=== PATIENT | male | born 1950 | race Caucasian/White ===

== ENCOUNTER 2020-09-14 10:00 | Outpatient (RCR) | payer OTHER, SELFPAY | END 2020-09-14 11:01 | disposition other institution (70) | LOC: HO.PT 10:00 | PROVIDERS: PCP Registered Nurse Community Health; Visit Provider Registered Nurse Community Health | DX: M54.10 Radiculopathy, site unspecified (principal) | CPT/HCPCS: 97110; 97112; 97140; 97161 ==

== ENCOUNTER 2021-10-19 12:21 | Outpatient (REF) | payer OTHER, SELFPAY ==
--- NOTE | ~2021-10-19 | XR_ITS ---
EXAMINATION: XR CHEST CLINICAL INFORMATION: Bronchitis COMPARISON: 07/15/2010 TECHNIQUE: 2 views of the chest were obtained. FINDINGS: Normal symmetric lung volumes. No parenchymal consolidation. No pleural effusion. No pneumothorax. Cardiomediastinal silhouette and pulmonary vascularity are within normal limits. No acute osseous abnormalities. XR/XR chest 2V IMPRESSION: No acute findings
== END 2021-10-19 12:22 | disposition home or self-care (01) ==
LOC: HO.XRAY 12:21
PROVIDERS: Absent Provider Internal Medicine Geriatric Medicine; PCP Internal Medicine Geriatric Medicine; Visit Provider Internal Medicine
DX: J10.1 Influenza due to other identified influenza virus with other respiratory manifestations (principal); J40 Bronchitis, not specified as acute or chronic
CPT/HCPCS: 71046

== ENCOUNTER 2023-08-16 11:16 | Outpatient (REF) | payer OTHER, SELFPAY ==
[2023-08-16 13:15] LABS: MANUAL DIFF FLAG NO
[2023-08-16 13:30] LABS: Basophils Percent Auto 0.4 % (0-2); Eosinophils Percent Auto 0.5 % (0-4); Hematocrit 41.4 % (42.0-52.0); Hemoglobin 13.9 g/dl (14.0-18.0); Imm Gran Abs Auto 0.01 X10*3/uL (0.00-0.03); Imm Gran Pct Auto 0.2 % (0.0-0.4); Lymphocytes Absolute Auto 0.9 X10*3/uL (1.2-4.9); Lymphocytes Percent Auto 16.2 % (20-40); Mean Corpuscular HGB Conc 33.6 g/dl (31.0-36.0); Mean Corpuscular Hemoglobin 30.9 pg (27.0-33.0); Mean Platelet Volume 11.1 fL (9.4-12.4); Monocytes Absolute Auto 0.5 X10*3/uL (0.1-1.2); Monocytes Percent Auto 8.7 % (2-11); Neutrophils Absolute Auto 4.2 x10*3/uL (2.0-8.3); Platelet Count 289 X10*3/uL (160-400); Red Cell Distribution Width 12.6 % (11.0-16.0); White Blood Count 5.6 X10*3/uL (4.8-10.8)
[2023-08-16 14:20] LABS: Alanine Aminotransferase 22 U/L (0-40); Alkaline Phosphatase 90 U/L (39-117); Anion Gap 13 (12-20); Aspartate Amino Transferase 21 U/L (5-37); Bilirubin Total 1.7 mg/dL (0.0-1.0); Blood Urea Nitrogen 12 mg/dL (9-16); Calcium 8.8 mg/dL (8.4-10.2); Carbon Dioxide 27 mmol/L (22-29); Chloride 106 mmol/L (96-108); Cholesterol 133 mg/dL (<200); Estimated Glomerular Filt Rate > 60; Glucose Random 96 mg/dL (60-115); HDL Cholesterol 46 mg/dL (>40); LDL Cholesterol Calculated 75 mg/dL (<100); Potassium 3.7 mmol/L (3.3-5.1); Sodium 142 mmol/L (135-145); TSH reflex Free T4 1.54 uIU/mL (0.32-4.0); Total Protein 6.7 g/dL (6.5-8.0); Triglycerides 61 mg/dL (<150)
== END 2023-08-16 11:17 | disposition home or self-care (01) ==
LOC: HO.HHCL 11:16
PROVIDERS: Visit Provider Internal Medicine Geriatric Medicine
DX: I10 Essential (primary) hypertension (principal); F32.A Depression, unspecified; G47.00 Insomnia, unspecified; E03.9 Hypothyroidism, unspecified; E78.00 Pure hypercholesterolemia, unspecified; Z86.73 Personal history of transient ischemic attack (TIA), and cerebral infarction without residual deficits
CPT/HCPCS: 36415; 80053; 80061; 84443; 85025

== ENCOUNTER 2024-10-12 06:16 | Day surgery (SDC) | payer OTHER, SELFPAY ==
[2024-10-08 07:29] VITALS: BMI 21.9
[2024-10-12 06:55] VITALS: BP 133/87; PULSE 77; RESP 20; TEMP 36.6; O2SAT 96
[2024-10-12] MEDS: Tetracaine HCl/PF 0.5% Oph Sol 4 ML DROPS 1 DROP EYE-RIGHT (07:07)
[2024-10-12] MEDS: Lactated Ringers 500 ML 50 ML IV (07:07)
[2024-10-12] MEDS: Cyclopentolate 1 % Ophth Sol 2 ML DRPBTL 1 DROP EYE-RIGHT ×3 (07:08→07:10)
[2024-10-12] MEDS: Ketorolac Tromethamine 0.5% Op 5 ML DROPS 1 DROP EYE-RIGHT ×3 (07:08→07:11)
[2024-10-12] MEDS: Tropicamide 1 % Ophth Sol 3 ML BTL 1 DROP EYE-RIGHT ×3 (07:08→07:10)
[2024-10-12] MEDS: Phenylephrine HCL 2.5% Oph SoL 2 ML BOTTLE 1 DROP EYE-RIGHT ×3 (07:09→07:11)
--- NOTE | 2024-10-12 07:20 | HO.ANESPROP2 ---
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 CVA (cerebral vascular accident) Social History Social History (System 08/20/23 @ 12:40 by Lisbet Johnson) Patient Tobacco Use Status: Never used Tobacco Use of substances other than those prescribed or required for medical reasons: No Advance Directives: No Advance Directives Information Provided: Yes Advance Directives on File: No Meds Allergies Allergy/AdvReac Type Severity Reaction Status Date / Time aspirin Allergy Unknown Verified 10/08/24 07:22 Home Medications ?Medication ?Instructions ?Recorded ?Confirmed ?Last Taken ?Type allopurinol 300 mg tablet 300 mg PO DAILY 10/08/24 10/08/24 10/12/24 History atorvastatin 80 mg tablet 80 mg PO DAILY 10/08/24 10/08/24 10/12/24 History clopidogrel 75 mg tablet (Plavix) 75 mg PO DAILY 10/08/24 10/08/24 10/12/24 History levothyroxine 50 mcg tablet 50 mcg PO DAILY 10/08/24 10/08/24 10/12/24 History losartan 25 mg tablet 25 mg PO DAILY 10/08/24 10/08/24 Unknown History pantoprazole 40 mg tablet,delayed 40 mg PO DAILY 10/08/24 10/08/24 10/12/24 History release tamsulosin 0.4 mg capsule 0.4 mg PO DAILY 10/08/24 10/08/24 10/12/24 History Exam Height,Weight and Vital Signs: Height 5 ft 6 in Weight 61.689 kg Assessment and Plan Assessment Anesthesia Assessment: Chart Reviewed Documented by User: Jeana Miller DO 10/12/24 07:45 [facility] Past Medical History Medical History GERD (gastroesophageal reflux disease) On anticoagulant therapy Elevated cholesterol HTN (hypertension) 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 CVA (cerebral vascular accident) Family History Family history of problems with anesthesia: No Surgical History History of Problems with Anesthesia: No Social History Social History (System 08/20/23 @ 12:40 by Lisbet Johnson) Patient Tobacco Use Status: Never used Tobacco Use of substances other than those prescribed or required for medical reasons: No Advance Directives: No Advance Directives Information Provided: Yes Advance Directives on File: No Meds Allergies Allergy/AdvReac Type Severity Reaction Status Date / Time aspirin Allergy Unknown Verified 10/08/24 07:22 Home Medications ?Medication ?Instructions ?Recorded ?Confirmed ?Last Taken ?Type allopurinol 300 mg tablet 300 mg PO DAILY 10/08/24 10/08/24 10/12/24 History atorvastatin 80 mg tablet 80 mg PO DAILY 10/08/24 10/08/24 10/12/24 History clopidogrel 75 mg tablet (Plavix) 75 mg PO DAILY 10/08/24 10/08/24 10/12/24 History levothyroxine 50 mcg tablet 50 mcg PO DAILY 10/08/24 10/08/24 10/12/24 History losartan 25 mg tablet 25 mg PO DAILY 10/08/24 10/08/24 Unknown History pantoprazole 40 mg tablet,delayed 40 mg PO DAILY 10/08/24 10/08/24 10/12/24 History release tamsulosin 0.4 mg capsule 0.4 mg PO DAILY 10/08/24 10/08/24 10/12/24 History Exam Exam Date and Time: 10/12/24 0720 Height,Weight and Vital Signs: Height 5 ft 6 in Weight 61.689 kg Vital Signs Temperature 97.8 F 10/12/24 06:55 Pulse Rate 77 10/12/24 06:55 Respiratory Rate 20 10/12/24 06:55 Blood Pressure 133/87 10/12/24 06:55 Pulse Oximetry 96 10/12/24 06:55 Oxygen Delivery Method Room Air 10/12/24 06:55 Temperature 97.8 F 10/12/24 06:55 Pulse Rate 77 10/12/24 06:55 Respiratory Rate 20 10/12/24 06:55 Blood Pressure 133/87 10/12/24 06:55 Pulse Oximetry 96 10/12/24 06:55 Oxygen Delivery Method Room Air 10/12/24 06:55 Airway Mallampati Class: II TM Dist: >3cm Neck ROM: Limited Denture: Upper Heart: S1S2 Lungs: CTAB Assessment and Plan Assessment Anesthesia Assessment: Anesthesia Plan Discussed and Chart Reviewed Final Anesthetic Review Family History of Problems with Anesthesia: No History of Problems with Anesthesia: No NPO: Yes ASA Class: III Final Preanesthetic Review: No Changes in Pt Med Stat, Meds/Allgs Chart Reviewed, Consent Obtained/Reviewed (debubblizer at bedside for translation) and Anes Risks/Benef Reviewed Patient Risk: Intermediate Procedure Risk: Low Anesthetic Plan Anesthetic Plan: MAC: and Agree w/ Assess. and Plan Disposition: Standard PACU
--- NOTE | 2024-10-12 08:01 | MHC.SHP ---
Pre-Procedural Eval Section A - 24 Hr Update-Section A only Date of Service: 10/12/24 The patient is an INPATIENT: No Changes since office visit: No Cold of Flu in the past 2 weeks, No New Medical Problems, No Changes in Medication and No Patient answered all questions The patient has been examined within 24 hours of the surgical procedure. The History & Physical has been completed within 30 days and I have reviewed it.: Yes Section B - Complete if H&P > 30 days Chief Complaint: Age-related nuclear cataract, right eye Allergies: Allergies Allergy/AdvReac Type Severity Reaction Status Date / Time aspirin Allergy Unknown Verified 10/08/24 07:22 Plan Diagnosis/Plan: Unchanged I have reviewed the history and physical and performed a pertinent physical examination on my patient. No changes have occurred unless specified. Time Spent With Patient Time: Total time managing care of this patient today ____ minutes.
--- NOTE | 2024-10-12 08:02 | P.PCNO_ITS ---
Ophthalmology Procedure Procedure Date of Service: 10/12/24 Ophthalmology Viscoelastic: Healon Duet Dual Pack Pro Ophthalmology Lenses: IOL Acrysof MP - [id number] (21) Procedure Notes: PREOPERATIVE DIAGNOSIS: Decreased visual acuity right eye secondary to cataract POSTOPERATIVE DIAGNOSIS: Same PROCEDURE: Right cataract extraction with intraocular lens insertion SURGEON: Wong Dewey M.D. ANESTHESIA: Topical/MAC ESTIMATED BLOOD LOSS: None COMPLICATIONS: None After obtaining informed consent, the patient was brought to the operating room suite and placed in the supine position. After adequate sedation per anesthesia, topical drops of Tetracaine were given to the right eye. The eye was then prepped and draped in the usual sterile fashion. The operating room microscope was then positioned over the operative eye and a lid speculum placed. A paracentesis was created. Viscoelastic was then instilled into the anterior chamber. A three plane incision was then created temporally, utilizing a 2.85 mm keratome. Capsulotomy forceps were then utilized to create a circular tear capsulotomy. Hydrodissection and hydrodelineation were carried out until adequate mobilization of the nucleus occurred. Phacoemulsification was then utilized to remove the dense central nucl eus followed by removal of the cortical material utilizing the automated aspiration irrigation unit. Viscoelastic was instilled into the posterior capsular bag followed by placement of a posterior chamber intraocular lens without difficulty. The residual Viscoelastic was then removed utilizing the automated IA machine. The wound was checked and found to be watertight. The patient tolerated the procedure well and the lid speculum was removed. Intracameral injection of Vigamox 0.1 mL followed by a subtenon injection of Kenalog-40 0.2 mL were administered. The patient will be seen in the a.m.
[2024-10-12 08:27] VITALS: BP 132/69; PULSE 63; RESP 16; TEMP 36.4; O2SAT 98
[2024-10-12 08:42] VITALS: BP 125/67; PULSE 65; RESP 16; TEMP 36.4; O2SAT 98
== END 2024-10-12 08:46 | disposition home or self-care (01) ==
PROVIDERS: PCP Internal Medicine Geriatric Medicine; Visit Provider Ophthalmology
PROC: (CPT 66985; principal; 2024-10-12 08:00)
DX: H25.11 Age-related nuclear cataract, right eye (principal); H54.7 Unspecified visual loss; H35.033 Hypertensive retinopathy, bilateral; H43.21 Crystalline deposits in vitreous body, right eye; H11.031 Double pterygium of right eye; H18.413 Arcus senilis, bilateral; K21.9 Gastro-esophageal reflux disease without esophagitis; I69.328 Other speech and language deficits following cerebral infarction; I10 Essential (primary) hypertension; E78.00 Pure hypercholesterolemia, unspecified; Z86.73 Personal history of transient ischemic attack (TIA), and cerebral infarction without residual deficits; Z79.82 Long term (current) use of aspirin; Z79.01 Long term (current) use of anticoagulants; Z79.02 Long term (current) use of antithrombotics/antiplatelets; Z79.899 Other long term (current) drug therapy; Z88.6 Allergy status to analgesic agent; Z87.891 Personal history of nicotine dependence
CPT/HCPCS: 66984; J2250; J3301; V2630

== ENCOUNTER 2024-10-20 08:44 | Outpatient (REF) | payer OTHER, SELFPAY ==
--- OUTSIDE RECORDS SUMMARY | 2024-10-20 09:14 | XMS_ITS | Encounter Summary ---
Author Organization [employer] Address [address] [facility] [address] [place] [address] Care Team Providers Care Manager Industrial Name Role Phone Name, Darvin THOMSON Primary Care Provider [phone] Reason for Visit * Reason Onset Date Comments Pre-op Exam 08/05/2024 Encounter Details Date Type Department Care Team ([facility] st Contact Info) Description 08/05/2024 Telephone [facility] [address] [place] [address] Name, MD Darvin [address] [place] [address] Pre-op Exam Social History Tobacco Use Types Packs/Day Years Used Date Smoking Tobacco: Never Smokeless Tobacco: Never Alcohol Use Standard Drinks/Week Comments Never 0 (1 standard drink = 0.6 oz pur e alcohol) Depression Answer Date Recorded Patient Health Questionnaire-9 Score 9 08/16/2023 Patient Health Questionnaire-9 Score 9 08/16/2023 Last PHQ-9: Questionnaire Data Not on file 0 08/16/2023 Housing Stability Answer Date Recorded What is your housing situation today? I have housing today, but I am worried about losing housing in the future 08/16/[address] you li ve. Do you have problems with any of the following? None of the above 08/16/2023 Food Insecurity Answer Date Recorded Within the past 12 months, y ou worried that your food would run out before you got money to buy more: Never True 08/16/2023 Within the past 12 months,th e food you bought just didn't last and you didn't have enough money to get more: Never True 08/2023 Transportation Answer Date Recorded In the past 12 months, has l ack of transportation kept you from medical appts, meetings, work or from getting things needed for daily living? No 08/16/2023 Utilities Answer Date Recorded In the past 12 months, has t he electric, gas, oil or water company threatened to shut off services in your home? No 08/16/2023 Depression Answer Date Recorded Patient Health Questionnaire-2 Score 3 08/16/2023 Sex and Gender Information Value Date Recorded Sex Assigned at Male 05/14/2022 10:24 AM EDT Legal Sex Male 10:24 AM EDT Gender Identity Male 05/14/2022 10:24 AM EDT Sexual Orientation Choose not to disclose 2021 10:24 AM EDT documented as of this encounter Miscellaneous Notes * Telephone Encounter - Caroline Nava - 08/13/2024 1:08 PM EST Pt scheduled for pre op on 10/02/24 at 02:15PM. Appointment reminder letter mailed. * Telephone Encounter - Caroline Nava - 08/05/2024 1:25 PM EST Outgoing call to facility regarding pre op appointment request. No answer. LV. * Telephone Encounter - Doe Pan - 08/05/2024 10:11 AM EST Date of Surgery: 10/12/2024 (Right Eye) 10/26/2024 (Left Eye) Surgical procedure being done: Cataract Surgery Type of anesthesia: MAC Lab needed: No EKG: No Surgeon's name: [facility] [place] Facility name: [facility] Surgeon's office number: [phone] Surgeon's office fax number: [phone] Contact name (person you spoke with): Carolina Last office note from surgeon requested: No Send Message to Caroline Nava and Eliecer Flores documented in this encounter Plan of Treatment Not on file documented as of this encounter Visit Diagnoses Not on filedocumented in this encounter Additional Health Concerns Assessment Noted Time PHQ-9 Depression Total Score: 9 08/16/19 24 10:16 AM EST documented as of this encounter Care Teams Manager Industrial Relationship Specialty Start Date End Date Name, MD Darvin [address] [place] [address] PCP - General Family Medicine 04/01/18 documented as of this encounter
--- OUTSIDE RECORDS SUMMARY | 2024-10-20 09:14 | XMS_ITS | Encounter Summary ---
Author Organization [employer] Address [address] [facility] [address] [place] [address] Care Team Providers Care Splitter Operator Name Role Phone Name, Darvin THOMSON Primary Care Provider [phone] Encounter Details Date Type Department Care Team (Latest Contact Info) Description 10/19/2024 Travel Social History Tobacco Use Types Packs/Day Years [...] is your housing situation today? I have jessie short 10/07/[address] you li ve. Do you have problems with any of the following? None of the above 10/07/2024 Food Insecurity Answer Date Recorded Within the past 12 months, y ou worried that your food would run out before you got money to buy more: Sometimes True 2024 Within the past 12 months,th e food you bought just didn't last and you didn't have enough money to get more: Sometimes True 10/07/2024 Transportation Answer Date Recorded In the past 12 months, has l ack of transportation kept you from medical appts, meetings, work or from getting things needed for daily living? No 10/07/2024 Utilities Answer Date Recorded In the past 12 months, has t he electric, gas, oil or water company threatened to shut off services in your home? No 10/07/2024 Depression Answer Date Recorded Patient Health Questionnaire-2 Score 3 08/16/2023 Internet Access Answer Date Recorded Internet Access Q1 Yes 10/07/2024 Internet Access Q2 Not on file 10/07/2024 Sex and Gender Information Value Date Recorded Sex Assigned at Male 05/14/2022 10:24 AM EDT Legal Sex Male 10:24 AM EDT Gender Identity Male 05/14/2022 10:24 AM EDT Sexual Orientation Choose not to disclose 2021 10:24 AM EDT documented as of this encounter Plan of Treatment Not on file documented as of this encounter Visit Diagnoses Not on filedocumented in this encounter Additional Health Concerns Assessment Noted Time PHQ-9 Depression Total Score: 9 08/16/19 24 10:16 AM EST documented as of this encounter Care Teams Splitter Operator Relationship Specialty Start Date End Date Name, MD Darvin [address] [place] [address] PCP - General Family Medicine 04/01/18 documented as of this encounter
--- OUTSIDE RECORDS SUMMARY | 2024-10-20 09:14 | XMS_ITS | Clinical Summary ---
Author Organization [employer] Address [address] [place] [address] [address] [place] [address] Care Team Providers Care Box Maker Wood Name Role Phone Name, Darvin THOMSON Primary Care Provider [phone] Allergies Active Allergy Reactions Criticality Noted Date Comments Aspirin 04/24/2019 Medications losartan (Cozaar) 25 MG tablet TAKE 1 TABLET BY MOUTH EVERY DAY IN THE MORNING 90 tablet 3 12/10/19 24 Active atorvastatin (Lipitor) 80 MG tablet TAKE 1 TABLET (80 MG) BY MOUTH IN THE MORNING 90 tablet 3 12/10/19 24 025 Active pantoprazole (Protonix) 40 MG EC tablet Take 1 tablet (40 mg) by mouth before breakfast. Do not crush, chew, or split. 30 tablet 11 01/08/20 24 025 Active clopidogrel (Plavix) 75 MG tablet TAKE 1 TABLET (75 MG) BY MOUTH IN THE MORNING 90 tablet 1 08/21/19 25 Active traZODone (Desyrel) 50 MG tablet TAKE 1 TABLET BY MOUTH EVERYDAY AT BEDTIME 90 tablet 09/07/19 25 Active allopurinol (Zyloprim) 300 MG tablet TAKE 1 TABLET (300 MG) BY MOUTH IN THE MORNING 90 tablet 2 10/03/19 25 026 Active tamsulosin (Flomax) 0.4 MG 24 hr capsule TAKE 1 CAPSULE BY MOUTH EVERY DAY IN THE MORNING 90 capsule 2 10/03/19 25 Active levothyroxine (Synthroid, Levoxyl) 50 MCG tabletIndicatio ns:Hypothyroidi sm, unspecified type TAKE 1 TABLET BY MOUTH EVERY DAY BEFORE BREAKFAST 90 tablet 2 10/03/19 25 Active allopurinol (Zyloprim) 300 MG tablet TAKE 1 TABLET (300 MG) BY MOUTH IN THE MORNING 90 tablet 2 01/27/20 24 025 Discontinued tamsulosin (Flomax) 0.4 MG 24 hr capsule TAKE 1 CAPSULE BY MOUTH EVERY DAY IN THE MORNING 90 capsule 2 02/20/20 24 025 Discontinued levothyroxine (Synthroid, Levoxyl) 50 MCG tabletIndicatio ns:Hypothyroidi sm, unspecified type TAKE 1 TABLET BY MOUTH BEFORE BREAKFAST 90 tablet 2 02/25/20 24 025 Discontinued Active Problems Problem Noted Date Diagnosed Date Preop examination 10/06/2024 History of CVA (cerebrovascular accident) 2023 Missing teeth, acquired 08/13/2023 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 Right bundle branch block 07/22/2018 Hypertensive disorder 07/22/2018 H/O: attempted suicide 05/13/2018 Depressive disorder 05/13/2018 Prostatism 04/01/2018 Hypothyroidism 04/01/2018 Expressive dysphasia 04/01/2018 Hypercholesterolemia 04/01/2018 Resolved Problems Problem Noted Date Diagnosed Date Resolved Date Influenza due to influenza A virus 08/01/2022 10/19/2024 Bronchitis 08/01/2022 10/19/2024 Encounters Date Type Department Care Team Description 10/19/2024 11:15 AM EDT Office Visit [address] [address] Yovana, MD Darvin Hypertension, unspecified type (Primary Dx); History of CVA (cerebrovascular accident); Hypothyroidism, unspecified type; Depressive disorder; Grief 10/19/2024 Travel 10/07/2024 10:00 AM EDT Office Visit [address] [phone] Bev Fox FNP Preop examination (Primary Dx); History of CVA (cerebrovascular accident) 10/07/[address] [address] Mee Granda RN 10/07/2024 Travel 10/05/[address] [phone] Meron Grant [place] Chart Prep 10/02/2024 Telephone [facility] [address] [place] [address] NameDarvin MD No Show (Patient no show for pre-op ) 10/02/2024 Refill [facility] [address] [place] [address] Darvin Yen MD Hypothyroidism, unspecified type 09/10/2024 Telephone [facility] [address] [place] [phone] Darvin Yen MD Chart Prep 09/07/2024 Refill [facility] [address] [place] [phone] Allison Barrientos MD 08/27/2024 Telephone [facility] [address] [place] [phone] Darvin Yen MD call back needed 08/21/2024 Refill [facility] [address] [place] [phone] Darvin Yen MD 08/05/2024 Telephone [facility] [address] [place] [phone] Darvin Yen MD Pre-op Exam from Last 3 Months Immunizations Name Administration Dates Next Due Influenza Quadrivalent Adjuvanted 04/05/2022,12/2019 Influenza injectable quadriv alent IIV4 with preservative 04/24/2019 Influenza injectable quadriv alent preservative free 07/11/2021,07/22/2018,03/09/2018 Influenza, High Dose Seasona l, Preservative Free 04/08/2024,02/27/2017 Moderna Covid-19 Vaccine 12+ 11/30/2021 Pfizer Covid-19 Vaccine 12+ 08/16/2023 Pneumococcal Conjugate PCV 13 07/22/2018 Tdap 04/24/2019 Social History Tobacco Use Types Packs/Day Years Used Date Smoking Tobacco: Never Smokeless Tobacco: Never Tobacco Cessation:Counseling Given: Not Answered Alcohol Use Standard Drinks/Week Comments Never 0 [...] not to disclose 2021 10:24 AM EDT Last Filed Vital Signs Vital Sign Reading Time Taken Comments Blood Pressure 139/77 10/19/2024 11:30 AM EDT Pulse 89 10/19/2024 11:30 AM EDT Temperature 37.3 ??C (99.1 ??F) 10/19/2024 11:30 AM E DT Respiratory Rate 12 10/19/2024 11:30 AM EDT Oxygen Saturation 96% 10/19/2024 11:30 AM EDT Inhaled Oxygen Concentration - - Weight 61.1 kg (134 lb 9.6 oz) 10/19/2024 11:30 AM EDT Height 162.6 cm (5' 4 ) 10/19/2024 11:30 AM EDT Body Mass Index 23.1 10/19/2024 11:30 AM EDT Plan of Treatment Health Maintenance Due Date Last Done Comments Hepatitis C Screening 1966 Zoster Vaccines (1 of 2) 1998 Dental Prophylaxis 04/15/2013 10/13/2012 Pneumococcal Vaccine: 50+ Years (2 of 2 - PPSV23) 07/22/2019 07/22/2018 Dental X-Ray: Bitewings 09/10/2020 09/09/19 20, 06/20/2016, 07/16/2012 Dental Oral Exam 10/04/2021 04/05/2021, , 06/20/2016, Additional history exists RSV Patients and Patients Aged 60 years or older (1 - 1-dose 75+ series) 10/09/2023 Depression Monitoring (PHQ-9) 02/14/2024 08/16/2023, 08/16/2023 COVID-19 Vaccine ( season) 2024 08/16/2023, 11/30/2021, 05/30/2021, Additional history exists Dental X-Ray: Full Mouth 04/06/2024 021, 09/09/2019, 06/20/2016 Depression Screening 08/16/2024 08/16/2023, 08/16/19 24 Alcohol/Substance Use Screening 01/07/2025 01/08/2024 SDOH Screening 10/07/2025 10/07/2024 Tobacco Screening 10/19/2025 10/19/2024 Lipid Panel 08/16/2028 08/16/2023, 07/16, 03/29/2022, Additional history exists DTaP/Tdap/Td Vaccines (2 - Td or Tdap) 04/24/2029 04/24/2019 Influenza Vaccine Completed 04/08/2024, , 07/11/2021, Additional history exists HIB Vaccines Aged Out No longer eligi ble based on patient's age to complete this topic HPV Vaccines Aged Out No longer eligi ble based on patient's age to complete this topic Hepatitis A Vaccines Aged Out No long er eligible based on patient's age to complete this topic Hepatitis B Vaccines Aged Out No long er eligible based on patient's age to complete this topic IPV Vaccines Aged Out No longer eligi ble based on patient's age to complete this topic Meningococcal Vaccine Aged Out No mae lilli eligible based on patient's age to complete this topic RSV under 20 months Aged Out No longe r eligible based on patient's age to complete this topic Rotavirus Vaccines Aged Out No longer eligible based on patient's age to complete this topic Procedures Procedure Name Priority Date/Time Associated Diagnosis Comments LIPID PANEL, STANDARD Routine 08/16/2023 11:22 AM EST Hypertension, unspecified type Depressive disorder Insomnia, unspecified type Hypothyroidism, unspecified type Hypercholesterolemi a PANORAMIC RADIOGRAPHIC IMAGE Routine 04/05/2021 12:00 AM EDT PERIODIC ORAL EVALUATION - ESTABLISHED PATIENT Routine 04/05/2021 12:00 AM EDT INTRAORAL - COMPLETE SERIES OF RADIOGRAPHIC IMAGES Routine 09/09/2019 12:00 AM EST PROPHYLAXIS - ADULT Routine 10/13/2012 1 2:00 AM EDT from Last 3 Months or Most Recently Relevant to Health Maintenance Results * Lipid Panel, Standard (08/16/2023 11:22 AM EST) Triglycerides 61 <150 mg/dL [facility] Comment:Desirable Triglyceri de: less than 150 mg/dLBorderline High Triglyceride 150-199 mg/dLHigh Triglyceride: 200-499 mg/dLVery High Triglyceride: greater than or equal to 5OO mg/dL Cholesterol 133 <200 mg/dL [facility] Comment:Desirable Cholestero l: less than 200 mg/dLBorderline High Cholesterol: 200-239 mg/dLHigh Cholesterol: greater than 239 mg/dL LDL Cholesterol Calculated 75 <100 mg/dL [facility] Comment:Desirable LDL: less than 100 mg/dLNear Optimal/Above Optimal LDL: 110- 129 mg/dLBorderline High LDL: 130-159 mg/dLHigh LDL: 160-189 mg/dLVery High LDL: greater than or equal to 190 mg/dL HDL Cholesterol 46 >40 mg/dL [facility] Comment:Desirable HDL: great er than 40 mg/dL Note: This HDL assay may give artificially low results in patients with liver disease. Blood Venous blood specimen / Unknown 08/16/2023 11:22 AM EST 08/16/2023 1:10 PM EST us Darvin Name LAB BLOOD ORDERABLES Final Resul t [facility] [address] [place] [address] [phone] from Last 3 Months or Most Recently Relevant to Health Maintenance Insurance [facility] - [facility] Care Teams Box Maker Wood Relationship Specialty Start Date End Date Name, MD Darvin [address] [place] [phone] PCP - General Family Medicine 04/01/18
--- OUTSIDE RECORDS SUMMARY | 2024-10-20 09:14 | XMS_ITS | Encounter Summary ---
Author Organization [employer] Address [address] [facility] [address] [place] [address] Care Team Providers Care Office Nurse Practitioner Name Role Phone Name, Darvin THOMSON Primary Care Provider [phone] Reason for Visit * Reason Comments Follow-up Encounter Details Date Type Department Care Team ([facility] st Contact Info) Description 10/19/2024 11:15 AM EDT Office Visit [facility] [address] [place] [address] Name, MD Darvin [address] [place] [address] Hypertension, unspecified type (Primary Dx); History of CVA (cerebrovascular accident); Hypothyroidism, unspecified type; Depressive disorder; Grief Social History Tobacco Use Types Packs/Day Years [...] AM EDT documented as of this encounter Last Filed Vital Signs Vital Sign Reading [...] Mass Index 23.1 10/19/2024 11:30 AM EDT documented in this encounter Progress Notes * Darvin Yen MD - 10/19/2024 11:15 AM EDT Subjective Patient ID: Renato Jay is a 74 y.o. male who presents for Follow-up. Patient comes for a follow-up visit and he is depressed. The patient has a personal history of depression. He had a suicidal attempt about 3 years ago. The patient tells me that he has no energy, no appetite, anhedonia. Symptoms of depression are worse since his in August after a long history of dementia. The patient is currently on trazodone for depression and insomnia. He denies any suicidal ideation. 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 He is using his medications as prescribed. He denies any chest pains or shortness of breath. Today he also complained about his current living situation. He does not like the building where helives and would like to move. Review of Systems Constitutional: Negative for chills, fatigue and fever. HENT: Negative for sore throat. Respiratory: Negative for cough, chest tightness and shortness of breath. Cardiovascular: Negative for chest pain, palpitations and leg swelling. Gastrointestinal: Negative for abdominal pain and blood in stool. Visit Vitals BP 139/77 (BP Location: Left arm, Patient Position: Sitting, BP Cuff Size: Adult) Pulse 89 Temp 99.1 ??F (37.3 ??C) (Temporal) Resp 12 Ht 5' 4 (1.626 m) Wt 134 lb 9.6 oz (61.1 kg) SpO2 96% BMI 23.10 kg/m?? Smoking Status Never BSA 1.66 m?? Objective Physical Exam Constitutional: Appearance: Normal appearance. Cardiovascular: Rate and Rhythm: Normal rate and regular rhythm. Heart sounds: No murmur heard. Pulmonary: Effort: Pulmonary effort is normal. No respiratory distress. Breath sounds: No wheezing, rhonchi or rales. Abdominal: Palpations: Abdomen is soft. Tenderness: There is no abdominal tenderness. Musculoskeletal: Right lower leg: No edema. Left lower leg: No edema. Neurological: Mental Status: He is alert. Assessment/Plan Diagnoses and all orders for this visit: Hypertension, unspecified type Comments: Continue current BP meds, Plavix, high-dose statin for secondary prevention of stroke. Check fasting blood work listed below. Orders: - CBC auto differential; Future - Comprehensive Metabolic Panel; Future - Lipid Panel, Standard; Future - TSH W/Reflex to FT4; Future History of CVA (cerebrovascular accident) Comments: See above. No new or progressing speech deficits. No focal weakness. Orders: - CBC auto differential; Future - Comprehensive Metabolic Panel; Future - Lipid Panel, Standard; Future - TSH W/Reflex to FT4; Future Hypothyroidism, unspecified type Comments: Continue levothyroxine and recheck TSH Orders: - CBC auto differential; Future - Comprehensive Metabolic Panel; Future - Lipid Panel, Standard; Future - TSH W/Reflex to FT4; Future Depressive disorder Comments: I called behavioral health to talk with the patient today. I requested referral to a psychiatrist. Continue current dose of trazodone. Orders: - CBC auto differential; Future - Comprehensive Metabolic Panel; Future - Lipid Panel, Standard; Future - TSH W/Reflex to FT4; Future Grief Comments: See above Orders: - CBC auto differential; Future - Comprehensive Metabolic Panel; Future - Lipid Panel, Standard; Future - TSH W/Reflex to FT4; Future documented in this encounter Plan of Treatment Scheduled Orders Name Type Priority Associated Diagnoses Orde r Schedule CBC auto differential Lab Routine Hypertension, unspecified type History of CVA (cerebrovascular accident) Hypothyroidism, unspecified type Depressive disorder Grief Expected: 10/19/2024 (Approximate), Expires: 10/19/2025 Comprehensive Metabolic Panel Lab Routine Hypertension, unspecified type History of CVA (cerebrovascular accident) Hypothyroidism, unspecified type Depressive disorder Grief Expected: 10/19/2024 (Approximate), Expires: 10/19/2025 Lipid Panel, Standard Lab Routine Hypertension, unspecified type History of CVA (cerebrovascular accident) Hypothyroidism, unspecified type Depressive disorder Grief Expected: 10/19/2024 (Approximate), Expires: 10/19/2025 TSH W/Reflex to FT4 Lab Routine Hypertension, unspecified type History of CVA (cerebrovascular accident) Hypothyroidism, unspecified type Depressive disorder Grief Expected: 10/19/2024 (Approximate), Expires: 10/19/2025 documented as of this encounter Visit Diagnoses Diagnosis Hypertension, unspecified type- Primary History of CVA (cerebrovascular accident) Transient ischemic attack (TIA), and cerebral infarction without residual deficits Hypothyroidism, unspecified type Depressive disorder Depressive disorder, not elsewhere classified Grief Adjustment disorder with depressed mood documented in this encounter Additional Health Concerns Assessment Noted Time PHQ-9 Depression Total Score: 9 08/16/19 24 10:16 AM EST documented as of this encounter Care Teams Office Nurse Practitioner Relationship Specialty Start Date End Date Name, MD Darvin [address] [place] [address] PCP - General Family Medicine 04/01/18 documented as of this encounter
[2024-10-20 11:07] LABS: MANUAL DIFF FLAG NO
[2024-10-20 11:20] LABS: Basophils Percent Auto 0.6 % (0-2); Eosinophils Percent Auto 0.4 % (0-4); Hematocrit 44.7 % (42.0-52.0); Hemoglobin 14.6 g/dl (14.0-18.0); Imm Gran Abs Auto 0.02 X10*3/uL (0.00-0.03); Imm Gran Pct Auto 0.3 % (0.0-0.4); Lymphocytes Absolute Auto 0.8 X10*3/uL (1.2-4.9); Lymphocytes Percent Auto 11.4 % (20-40); Mean Corpuscular HGB Conc 32.7 g/dl (31.0-36.0); Mean Corpuscular Hemoglobin 30.2 pg (27.0-33.0); Mean Corpuscular Volume 92.5 fL (80.0-98.0); Mean Platelet Volume 11.2 fL (9.4-12.4); Monocytes Absolute Auto 0.6 X10*3/uL (0.1-1.2); Monocytes Percent Auto 8.6 % (2-11); Neutrophils Absolute Auto 5.6 x10*3/uL (2.0-8.3); Neutrophils Percent Auto 78.7 % (45-73); Platelet Count 308 X10*3/uL (160-400); Red Blood Count 4.83 X10*6/uL (4.60-5.80); Red Cell Distribution Width 13.1 % (11.0-16.0); White Blood Count 7.2 X10*3/uL (4.8-10.8)
[2024-10-20 11:51] LABS: Alanine Aminotransferase 24 U/L (0-40); Alkaline Phosphatase 85 U/L (39-117); Anion Gap 10 (12-20); Aspartate Amino Transferase 25 U/L (5-37); Bilirubin Total 1.7 mg/dL (0.0-1.0); Blood Urea Nitrogen 19 mg/dL (9-16); Calcium 8.9 mg/dL (8.4-10.2); Carbon Dioxide 29 mmol/L (22-29); Chloride 107 mmol/L (96-108); Cholesterol 136 mg/dL (<200); Estimated Glomerular Filt Rate > 60; Glucose Random 103 mg/dL (60-115); HDL Cholesterol 52 mg/dL (>40); LDL Cholesterol Calculated 72 mg/dL (<100); Sodium 142 mmol/L (135-145); Total Protein 6.5 g/dL (6.5-8.0); Triglycerides 61 mg/dL (<150)
[2024-10-20 11:55] LABS: TSH reflex Free T4 1.64 uIU/mL (0.32-4.0)
== END 2024-10-20 08:45 | disposition home or self-care (01) ==
LOC: HO.HHCL 08:44
PROVIDERS: Visit Provider Internal Medicine Geriatric Medicine
DX: I10 Essential (primary) hypertension (principal); Z86.73 Personal history of transient ischemic attack (TIA), and cerebral infarction without residual deficits; E03.9 Hypothyroidism, unspecified; F32.A Depression, unspecified; F43.21 Adjustment disorder with depressed mood
CPT/HCPCS: 36415; 80053; 80061; 84443; 85025

== ENCOUNTER 2025-01-22 16:09 | Outpatient (REF) | payer OTHER, SELFPAY ==
--- NOTE | ~2025-01-22 | XR_ITS ---
EXAMINATION: XR CERVICAL SPINE 2-3 VIEWS HISTORY: PAIN COMPARISON: There are no prior studies available for comparison. FINDINGS: AP, lateral, and open-mouth odontoid views of the cervical spine are submitted. Osseous mineralization is normal. Seven cervical vertebral bodies are identified maintaining normal height and alignment without evidence of fracture or subluxation. There is minimal anterior osteophyte formation. The intervertebral disc spaces are preserved. The odontoid and lateral masses of C1 are intact. There is no prevertebral soft tissue swelling. XR/XR cervical spine 3V IMPRESSION: Minimal degenerative changes. Electronically signed by: Marck Sandoval MD 01/25/2025 07:20 AM EDT
== END 2025-01-22 16:10 | disposition home or self-care (01) ==
LOC: HO.HHCX 16:09
PROVIDERS: Visit Provider Nurse Practitioner Family
DX: M54.2 Cervicalgia (principal)
CPT/HCPCS: 72040

== ENCOUNTER → 2025-01-22 16:11 | Outpatient (BNV) | payer OTHER, SELFPAY | PROVIDERS: Visit Provider Radiology Diagnostic Radiology | DX: M54.2 Cervicalgia (principal) | CPT/HCPCS: 72040 ==

== ENCOUNTER 2025-05-14 15:20 | Emergency (ER) | payer OTHER, SELFPAY ==
[2025-05-14 15:45] VITALS: BP 205/84; PULSE 80; RESP 18; TEMP 36.6; O2SAT 98; BMI 24.2
--- NOTE | 2025-05-14 15:47 | ED.GENADULT ---
HPI - General Adult General Chief complaint: Eye Problems Stated complaint: r eye issue Time Seen by Provider: 05/14/25 17:10 History of Present Illness ED Provider: James GUERRERO narrative: The patient is a 74-year-old male who comes to the emergency room for evaluation of his right eye. The patient is not a very good historian. He tells me that he has a bloody nose with bleeding from his right nostril 4 days ago on Saturday. Subsequently he has developed some redness of the right eye. The patient is an extremely poor historian. He seems to say that some kind of medical professional, possibly a nurse practitioner, made a house call today and advised him to come to the emergency room for evaluation of his right eye. He has some paperwork with him that suggests a nurse practitioner might has been at his house. However when I ask him why a house call might has been arranged he told me he did not know. He suggested that perhaps somebody in his building called his regular doctor's office. He says his neighbors new that he was having redness to the right eye. In any event the patient ultimately came to the emergency room. He says that he walked here from his home. He is only able to give a very vague description of discomfort in his right eye. The patient had cataract surgery in his right eye by Dr. Dewey in September of 2024, approximately 7 months ago. Related Data Home Medications ?Medication ?Instructions ?Recorded ?Confirmed allopurinol 300 mg tablet 300 mg PO DAILY 10/08/24 10/08/24 atorvastatin 80 mg tablet 80 mg PO DAILY 10/08/24 10/08/24 clopidogrel 75 mg tablet (Plavix) 75 mg PO DAILY 10/08/24 10/08/24 levothyroxine 50 mcg tablet 50 mcg PO DAILY 10/08/24 10/08/24 losartan 25 mg tablet 25 mg PO DAILY 10/08/24 10/08/24 pantoprazole 40 mg tablet,delayed 40 mg PO DAILY 10/08/24 10/08/24 release tamsulosin 0.4 mg capsule 0.4 mg PO DAILY 10/08/24 10/08/24 Previous Rx's ?Medication ?Instructions ?Recorded ofloxacin 0.3 % eye drops 2 drp ophthalmic (eye) QID #5 mL 05/14/25 Allergies Allergy/AdvReac Type Severity Reaction Status Date / Time aspirin Allergy Unknown Verified 05/14/25 15:46 Review of Systems Review of Systems: Yes all other systems are reviewed and are negative [facility] Past Medical History Medical History (Updated 05/14/25 @ 18:14 by Amrik Ramirez MD) GERD (gastroesophageal reflux disease) On anticoagulant therapy Elevated cholesterol HTN (hypertension) 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 CVA (cerebral vascular accident) Social History Social History (System 08/20/23 @ 12:40 by Lisbet Johnson) Alcohol intake: former Patient Tobacco Use Status: Never used Tobacco Smoked in Last 30 Days: No Use of substances other than those prescribed or required for medical reasons: No Advance Directives: No Advance Directives Information Provided: Yes Physical Exam ED Vital Signs: Vital Signs - 24 hr 05/14/25 15:45 05/14/25 17:22 05/14/25 18:34 Temperature 97.8 F 97.8 F 97.8 F Pulse Rate 80 64 64 Respiratory Rate 18 14 14 Blood Pressure 205/84 H 140/73 H 140/73 H Pulse Oximetry 98 97 97 Oxygen Delivery Method Room Air Room Air Room Air BMI result Body Mass Index 24.2 Const Other: The patient is a slim elderly man who was awake and alert and does not seem acutely ill. HENMT Other: Face is symmetrical. Mucous membranes are moist. Eyes Other: Pupils are round and equal. The patient has some kind of an abnormality to the medial aspect of the right cornea which may be a pterygium. I believe the patient may have some chronic redness to the conjunctiva of the right eye but I am not convinced that there is acute redness. Intra-ocular pressures are 13-14 in each eye. The patient 's visual acuity is 20/40 in the right eye (the eye of concern). The patient is visual acuity is 20/50 in the left eye (the unaffected eye). Fluorescein staining does not show any obvious right corneal abnormality. At the medial aspect of the right cornea is some kind of soft tissue abnormality I think which may be a pterygium.. Neck Neck: Yes normal visual inspection, Yes full ROM and Yes no JVD Resp Effort & Inspection: normal respiratory effort Auscultation: clear to auscultation bilaterally Cardio Rate: regular rate Rhythm: regular rhythm Heart sounds: S1 normal heart sound present and S2 normal heart sound present Skin Other: The skin of the face in the periocular skin is normal. Neuro Other: The patient is awake and alert. He is primarily Nigerien speaking although he seemed to understand some Irish. He was interviewed with a Nigerien language translator. The patient was in extremely vague historian and I suspect he may have some degree of dementia or he may simply be somewhat simple. His cranial nerves are intact. He moves his extremities normally and appropriately. His gait is steady. Extrem Other: No peripheral edema Course Course Course Narrative: This is a Rapid Medical Examination (RME) performed by Esthela Tovar PA-C in triage. Full HPI, ROS, assessment and treatment plan per primary provider in the Main ED. Hx: 74 yo M here for eval of right eye irritation/pain/redness x5 days. reports bloody discharge from the eye yesterday. reports blurred vision to R eye. hx of cataract surgery earlier this year. Plan: eye exam Medications Administered Discontinued Medications Generic Name Dose Route Start Last Admin Trade Name Freq PRN Reason Stop Dose Admin Erythromycin 1 cm 05/14/25 18:13 05/14/25 18:23 Erythromycin Base 0.5% Oph Oin 1 Gm Tube EYE-RIGHT 05/14/25 18:14 1 cm ONCE ONE Administration Fluorescein Sodium 1 strip 05/14/25 15:48 05/14/25 17:48 Fluorescein Sodium Strip EYE-RIGHT 05/14/25 15:49 Not Given ONCE ONE Fluorescein Sodium 1 strip 05/14/25 17:40 05/14/25 17:49 Fluorescein Sodium Strip EYE-RIGHT 05/14/25 17:41 1 strip ONCE ONE Administration Tetracaine HCl 1 drop 05/14/25 15:48 05/14/25 17:48 Tetracaine Hcl/Pf 0.5% Oph Marcela 4 Ml Drops EYE-RIGHT 05/14/25 15:49 Not Given ONCE ONE Tetracaine HCl 3 drop 05/14/25 17:40 05/14/25 17:49 Tetracaine Hcl/Pf 0.5% Oph Marcela 4 Ml Drops EYE-BOTH 05/14/25 17:41 3 drop ONCE ONE Administration Medical Decision Making Medical Decision Making MDM Narrative: The patient is a 74-year-old male who was here in the emergency room seemingly for evaluation of a possible right eye issue. Unfortunately the patient is an extremely poor historian and was very difficult to communicate with even when using a Nigerien sales vendor. I am not certain if the patient has some kind of chronic cognitive deficits but I think that is probable. I do not really appreciate any definite acute problem with his right eye. His intra-ocular pressures are normal. His visual acuity in his right eye is 20/40 which is better than in his left eye which is 20/50. I believe that he might has been advised to come to the emergency room by a healthcare professional who may have made some kind of a house call. In any event I do not think there was an acute ophthalmological emergency of significance at work. Perhaps there is a mild conjunctivitis. The patient will be treated with ofloxacin drops. He has seen Dr. Dewey'destiney in the past. He will be advised to call Dr. Dewey's office in the morning. He should return if worse. Discharge Plan Discharge Clinical Impression: Redness of right eye Patient Disposition: Home, Self-Care Additional Instructions: You received some antibiotic ointment in your right eye this evening. Tomorrow morning please go to the [facility] pharmacy at [address] [place] [address] to rock picker an additional bottle of antibiotic eyedrops. Please give yourself 2 drops of the antibiotic eyedrops in your right eye 4 times a day. Please call your eye doctor, Dr. Dewey'destiney, on Saturday for a follow up appointment next week. Please continue the eyedrops until you see Dr. Dewey. Return to the emergency room if significantly worse. Prescriptions: New ofloxacin 0.3 % drops 2 drp ophthalmic (eye) QID Qty: 5 0RF No Action atorvastatin 80 mg Tablet 80 mg PO DAILY clopidogrel [Plavix] 75 mg Tablet 75 mg PO DAILY tamsulosin 0.4 mg Capsule 0.4 mg PO DAILY levothyroxine 50 mcg Tablet 50 mcg PO DAILY pantoprazole 40 mg Tablet,Delayed Release (Dr/Ec) 40 mg PO DAILY losartan 25 mg Tablet 25 mg PO DAILY allopurinol 300 mg Tablet 300 mg PO DAILY Referrals: Wong Dewey [Physician, Ophthalmology] Name,MD Darvin [Primary Care Provider, Internal Medicine] Interventions: ED Discharge Assessment Last Done: 05/14/25 18:34 Discharge Date/Time: 05/14/25 18:34 Print Language: Nigerien
--- OUTSIDE RECORDS SUMMARY | 2025-05-14 17:15 | XMS_ITS | Encounter Summary ---
Author Organization [employer] Address [address] [facility] [address] [place] [address] Care Team Providers Care Keyboard Instrument Repairer Name Role Phone Name, Darvin THOMSON Primary Care Provider [phone] Reason for Visit * Reason Onset Date Comments Pre-op Exam 08/05/2024 Encounter Details Date Type Department Care Team ([facility] st Contact Info) Description 08/05/2024 Telephone [facility] MEDICINE [address] [place] [address] Name, MD Darvin [address] [place] [address] Pre-op Exam Social History Tobacco Use Types [...] Lab needed: No EKG: No Surgeon's name: [facility] Facility name: [facility] Surgeon's office number: [phone] Surgeon's office fax number: [phone] Contact name (person you spoke with): Carolina Last office note from surgeon requested: No Send Message to Caroline Nava and Eliecer Flores documented in this encounter Plan of Treatment Upcoming Encounters Date Type Department Care Team (Late st Contact Info) Description 07/12/2025 1:45 PM EST Office Visit [facility] MEDICINE [address] [place] [address] Name, MD Darvin [address] [place] [address] documented as of this encounter Visit Diagnoses Not on filedocumented in this encounter Additional Health Concerns Assessment Noted Time PHQ-9 Depression Total Score: 9 08/16/19 24 10:16 AM EST documented as of this encounter Care Teams Keyboard Instrument Repairer Relationship Specialty Start Date End Date Name, [place] [address] PCP - General Family Medicine 04/01/18 documented as of this encounter
--- OUTSIDE RECORDS SUMMARY | 2025-05-14 17:16 | XMS_ITS | Encounter Summary ---
Author Organization [employer] Address [address] [facility] [address] [place] [address] Care Team Providers Care Photo Graphics Librarian Name Role Phone Name, Darvin THOMSON Primary Care Provider [phone] Reason for Visit * Reason Onset Date Comments Nurse Triage 05/14/2025 Encounter Details Date Type Department Care Team ([facility] st Contact Info) Description 05/14/2025 Telephone [facility] MEDICINE [address] [place] [address] Name, MD Darvin [address] [place] [address] Nurse Triage Social History Tobacco Use Types Packs/Day Years Used Date Smoking Tobacco: Never Passive Smoke Exposure: Never Smokeless Tobacco: Never Alcohol Use Standard Drinks/Week Comments Never 0 (1 standard drink = 0.6 oz pur e alcohol) Depression Answer Date Recorded Patient Health Questionnaire-9 Score 21 04/16/2025 Patient Health Questionnaire-9 Score 21 04/16/2025 Last PHQ-9: Questionnaire Data Not on file 1 Housing Stability Answer Date Recorded What is [...] Answer Date Recorded Patient Health Questionnaire-2 Score 6 04/16/2025 Internet Access Answer Date Recorded Internet Access [...] encounter Miscellaneous Notes * Telephone Encounter - Yelitza Lynn RN - 05/14/2025 2:36 PM EDT TC placed to pt via [employer] public relations sales marketing (ID#[id number]) for triage. Pt reports Saturday they had a nosebleed and have since developed bruising of their right eye. Pt reports a little bit of pain. When asked pain on a scale of 1-10, pt just stated it was a little bit of pain. Pt reports blurred vision worsening since the nosebleed. Pt denies eye swelling, vomiting, discharge from the eye. When asked if they have a fever, pt reports they are feeling warm. Pt reports their eye feels warm, and the redness hasimproved. Pt reports redness was worse on Saturday and but is improving. At beginning of call, pt reporting bruising of right eye. Advised pt due to worsening blurry vision and bruising to seek evaluation at the ED. Pt reports they will go [facility] now. Pt reports they will call [facility] whendischarged. Message forwarded to team nurses for status check and ED follow up PRN. Protocol Used: Eye Pain and Other Symptoms (Adult) Protocol-Based Disposition: Go to ED/UCC Now (or to Office Now per Policy) Positive Triage Question: * Blurred vision AND new-onset or getting worse * All higher-acuity triage questions were negative Care Advice Discussed: * Reasons To Call Back - Pain increases - Pain lasts over 24 hours - Pus or yellow/green discharge occurs - Blurred vision occurs - You become worse * Telephone Encounter - Randy Engle - 05/14/2025 12:56 PM EDT Symptoms: Eye Redness Without Pus or Discharge, Eye Pain - Not From Injury Outcome: Schedule an urgent appointment (within 1 hour) or talk to a nurse or provider soon Reason: Severe pain now The caller accepted this outcome. Contact pt at [phone] (vietnamese) documented in this encounter Plan of Treatment Upcoming Encounters Date Type Department Care Team (Late st Contact Info) Description 07/12/2025 1:45 PM EST Office Visit [facility] MEDICINE [address] [place] [phone] Name, MD Darvin [address] [place] [address] documented as of this encounter Visit Diagnoses Not on filedocumented in this encounter Additional Health Concerns Assessment Noted Time PHQ-9 Depression Total Score: 21 025 2:36 PM EDT documented as of this encounter Care Teams Photo Graphics Librarian Relationship Specialty Start Date End Date NameDarvin MD [address] [place] [id number] PCP - General Family Medicine 04/01/18 documented as of this encounter
--- OUTSIDE RECORDS SUMMARY | 2025-05-14 17:16 | XMS_ITS | Clinical Summary ---
Author Organization [employer] Address [address] [place] [address] [address] [place] [address] Care Team Providers Care Performance Manager Name Role Phone Name, Darvin THOMSON Primary Care Provider [phone] Allergies Active Allergy Reactions Criticality Noted Date Comments Aspirin 04/24/2019 Medications * This document contains information received from the source organization and may not represent a complete record from that organization. allopurinol (Zyloprim) 300 MG tablet TAKE 1 TABLET (300 MG) BY MOUTH IN THE MORNING 90 tablet 2 5 09/28/19 26 Active tamsulosin (Flomax) 0.4 MG 24 hr capsule TAKE 1 CAPSULE BY MOUTH EVERY DAY IN THE MORNING 90 capsule 2 5 Active levothyroxine (Synthroid, Levoxyl) 50 MCG tabletIndication s:Hypothyroidism , unspecified type TAKE 1 TABLET BY MOUTH EVERY DAY BEFORE BREAKFAST 90 tablet 2 5 Active losartan (Cozaar) 25 MG tablet TAKE 1 TABLET BY MOUTH EVERY DAY IN THE MORNING 90 tablet 3 5 Active atorvastatin (Lipitor) 80 MG tablet TAKE 1 TABLET (80 MG) BY MOUTH IN THE MORNING 90 tablet 3 5 12/09/19 26 Active pantoprazole (ProtoNix) 40 MG EC tablet TAKE 1 TABLET BY MOUTH BEFORE BREAKFAST. DO NOT CRUSH, CHEW OR SPLIT. 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 He had a craniotomy at [facility] No residual weakness Missing teeth, acquired 08/13/2023 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 Right bundle branch block 07/22/2018 Hypertensive disorder 07/22/2018 H/O: attempted suicide 05/13/2018 Depressive disorder 05/13/2018 Prostatism 04/01/2018 Hypothyroidism 04/01/2018 Expressive dysphasia 04/01/2018 Hypercholesterolemia 04/01/2018 Resolved Problems Problem Noted Date Diagnosed Date Resolved Date Influenza due to influenza A virus 08/01/2022 10/19/2024 Bronchitis 08/01/2022 10/19/2024 Encounters * This document contains information received from the source organization and may not represent a complete record from that organization. Date Type Department Care Team Description 05/14/[address] [facility] [address] [place] [address] Darvin Yen MD Nurse Triage 04/16/2025 1:45 PM EDT Office Visit [address] [address] Darvin Yen MD Hypertension, unspecified type (Primary Dx); History of CVA (cerebrovascular accident); Encounter for immunization; Depression with anxiety; Blurred vision, bilateral 04/16/2025 Travel 04/15/[address] [facility] [address] [place] [phone] Darvin Yen MD CHARTPREP 04/09/2025 Patient Outreach [facility] [address] [place], [place] [phone] Darvin Yen MD Pre-visit Planning (SDOH unable to complete) 03/07/[address] [facility] [address] [place] [address] Darvin Yen MD 02/17/[address] [address] Name, MD Darvin from Last 3 Months Immunizations Immunization Administration Dates Next Due Influenza Quadrivalent Adjuvanted 04/05/2022,12/2019 Influenza injectable quadriv alent IIV4 with preservative 04/24/2019 Influenza injectable quadriv alent preservative free 07/11/2021,07/22/2018,03/09/2018 Influenza, High Dose Seasona l, Preservative Free 04/01/2025,04/08/2024,02/27/2017 Moderna Covid-19 Vaccine 12+ 11/30/2021 Pfizer Covid-19 Vaccine 12+ 08/16/2023 Pneumococcal Conjugate PCV 13 07/22/2018 Pneumococcal Conjugate PCV 20 04/16/2025 Tdap 04/24/2019 Social History Tobacco Use Types Packs/Day Years Used Date Smoking Tobacco: Never Passive Smoke Exposure: Never Smokeless Tobacco: Never Tobacco Cessation:Counseling Given: [...] Sign Reading Time Taken Comments Blood Pressure 130/72 04/16/2025 1:48 PM EDT Pulse 85 04/16/2025 1:48 PM EDT Temperature 36.7 C (98 F) 04/16/2025 1:48 PM EDT Respiratory Rate 12 04/16/2025 1:48 PM EDT Oxygen Saturation 98% 04/16/2025 1:48 PM EDT Inhaled Oxygen Concentration - - Weight 62.8 kg (138 lb 6.4 oz) 04/16/2025 1:48 P M EDT Height 157.5 cm (5' 2 ) 04/16/2025 1:48 PM EDT Body Mass Index 25.31 04/16/2025 1:48 PM EDT Plan of Treatment Upcoming Encounters Date Type Department Care Team (Late st Contact Info) Description 07/12/2025 1:45 PM EST Office Visit [facility] [address] [place] [phone] Name, MD Darvin [address] [place] [phone] Health Maintenance Due Date Last Done Comments Hepatitis C Screening 1966 Zoster Vaccines (1 of 2) 1998 Dental Prophylaxis 04/15/2013 10/13/2012 Dental X-Ray: Bitewings 09/10/2020 09/09/19 20, 06/20/2016, 07/16/2012 Dental Oral Exam 10/04/2021 04/05/2021, , 06/20/2016, Additional history exists RSV Patients and Patients Aged 60 years or older (1 - 1-dose 75+ series) 10/09/2023 Dental X-Ray: Full Mouth 04/06/2024 021, 09/09/2019, 06/20/2016 COVID-19 Vaccine ( season) 2025 04/01/2025, 08/16/2023, 11/30/2021, Additional history exists SDOH Screening 10/07/2025 10/07/2024 Depression Monitoring 10/15/2025 04/16/2025, 025 Alcohol/Substance Use Screening 04/16/2026 04/16/2025 Tobacco Screening 04/16/2026 04/16/2025 DTaP/Tdap/Td Vaccines (2 - Td or Tdap) 04/24/2029 04/24/2019 Lipid Panel 10/20/2029 10/20/2024, 08/2023, 08/07/2022, Additional history exists Influenza Vaccine Completed 04/01/2025, , 04/05/2022, Additional history exists Pneumococcal Vaccine: 50+ Years Completed 04/16/2025, 07/22/2018 HIB Vaccines Aged Out No longer eligi [...] patient's age to complete this topic Meningococcal B Vaccine Aged Out No l onger eligible based on patient's age to complete [...] Associated Diagnosis Comments LIPID PANEL, STANDARD Routine 10/20/2024 8:49 AM EDT Hypertension, unspecified type History of CVA (cerebrovascular accident) Hypothyroidism, unspecified type Depressive disorder Grief PANORAMIC RADIOGRAPHIC IMAGE Routine 04/05/2021 12:00 AM EDT PERIODIC ORAL EVALUATION - ESTABLISHED PATIENT Routine 04/05/2021 12:00 AM EDT INTRAORAL - COMPLETE SERIES OF RADIOGRAPHIC IMAGES Routine 09/09/2019 12:00 AM EST PROPHYLAXIS - ADULT Routine 10/13/2012 1 2:00 AM EDT from Last 3 Months or Most Recently Relevant to Health Maintenance Results * Lipid Panel, Standard (10/20/2024 8:49 AM EDT) Triglycerides 61 <150 mg/dL [facility] Comment:Desirable Triglyceri de: less than 150 mg/dLBorderline High Triglyceride 150-199 mg/dLHigh Triglyceride: 200-499 mg/dLVery High Triglyceride: greater than or equal to 5OO mg/dL Cholesterol 136 <200 mg/dL [facility] Comment:Desirable Cholestero l: less than 200 mg/dLBorderline High Cholesterol: 200-239 mg/dLHigh Cholesterol: greater than 239 mg/dL LDL Cholesterol Calculated 72 <100 mg/dL [facility] Comment:Desirable LDL: less than 100 mg/dLNear Optimal/Above Optimal LDL: 110- 129 mg/dLBorderline High LDL: 130-159 mg/dLHigh LDL: 160-189 mg/dLVery High LDL: greater than or equal to 190 mg/dL HDL Cholesterol 52 >40 mg/dL [facility] Comment:Desirable HDL: great er than 40 mg/dL Note: This HDL assay may give artificially low results in patients with liver disease. Blood Venous blood specimen / Unknown 10/20/2024 8:49 AM EDT 10/20/2024 11:02 AM EDT us Darvin Name MD LAB BLOOD ORDERABLES Final Resul t [facility] [address] [place] [address] [phone] from Last 3 Months or Most Recently Relevant to Health Maintenance Insurance [address] [place] [address] [employer] OPTIONS (HMO D-SNP) DENTAL [facility] Care Teams Performance Manager Relationship Specialty Start Date End Date Name, MD Darvin [address] [place] [address] PCP - General Family Medicine 04/01/18
[2025-05-14 17:22] VITALS: BP 140/73; PULSE 64; RESP 14; TEMP 36.6; O2SAT 97
[2025-05-14] MEDS: Fluorescein Sodium STRIP 1 STRIP EYE-RIGHT (17:49)
[2025-05-14] MEDS: Tetracaine HCl/PF 0.5% Oph Sol 4 ML DROPS 3 DROP EYE-BOTH (17:49)
[2025-05-14] MEDS: Erythromycin Base 0.5% Oph Oin 1 GM TUBE 1 CM EYE-RIGHT (18:23)
[2025-05-14 18:34] VITALS: BP 140/73; PULSE 64; RESP 14; TEMP 36.6; O2SAT 97
== END 2025-05-14 18:34 | disposition home or self-care (01) ==
PROVIDERS: Emergency Provider Emergency Medicine; PCP Internal Medicine Geriatric Medicine
DX: H57.89 Other specified disorders of eye and adnexa (principal)
CPT/HCPCS: 99283; 99284

== ENCOUNTER 2025-07-12 14:14 | Outpatient (REF) | payer OTHER, SELFPAY ==
--- OUTSIDE RECORDS SUMMARY | 2025-07-12 13:45 | XMS_ITS | Encounter Summary ---
Author Organization [employer] Address [address] [facility] [address]t [place] [address] Care Team Providers Care Rv Technician Name Role Phone Name, Darvin THOMSON Primary Care Provider [phone] Reason for Visit * Reason Comments Follow-up Encounter Details Date Type Department Care Team ([facility] st Contact Info) Description 07/12/2025 1:45 PM EST Office Visit [facility] [address] [place], [place] [phone] Name, MD Darvin [address] [place] [address] Hypertension, unspecified type (Primary Dx); Hypothyroidism, unspecified type; History of depression; History of CVA (cerebrovascular accident) Social History Tobacco Use Types Packs/Day Years Used Date Smoking Tobacco: Never Passive Smoke Exposure: Never Smokeless Tobacco: Never Alcohol Use Standard Drinks/Week Comments Never 0 (1 standard drink = 0.6 oz pur e alcohol) Alcohol Answer Date Recorded How often do you have a drink containing alcohol ? 0 06/09/2025 Average Number of Drinks Not on file 025 How often do you have six or more drinks on one occasion? 0 06/09/2025 Depression Answer Date Recorded Patient Health Questionnaire-9 Score 8 07/12/2025 Patient Health Questionnaire-9 Score 8 07/12/2025 Last PHQ-9: Questionnaire Data Not on file [...] the past 12 months, has t he [employer], gas, oil or water company threatened to shut off services in your home? No 10/07/2024 Depression Answer Date Recorded Patient Health Questionnaire-2 Score 2 07/12/2025 Internet Access Answer Date Recorded Internet Access [...] Sign Reading Time Taken Comments Blood Pressure 122/64 07/12/2025 1:42 PM EST Pulse 72 07/12/2025 1:42 PM EST Temperature 36.1 C (96.9 F) 07/12/2025 1:42 PM EST Respiratory Rate 20 07/12/2025 1:42 PM EST Oxygen Saturation 98% 07/12/2025 1:42 PM EST Inhaled Oxygen Concentration - - Weight 64.5 kg (142 lb 3.2 oz) 07/12/2025 1:42 P M EST Height - - Body Mass Index 26.01 04/16/2025 1:48 PM EDT documented in this encounter Progress Notes * Darvin Yen MD - 07/12/2025 1:45 PM EST Subjective Patient ID: Renato Jay is a 74 y.o. male who presents for Follow-up. Patient comes for a follow-up visit. He is feeling well. Patient feels in good spirits, he finds the trazodone to be very helpful and is also doing counseling and this is helping his symptoms of depression considerably. He is using his medications as prescribed, he is eating better, he has gained weight, he denies any chest pains, no shortness of breath. He has been walking around the mall lately. Review of Systems Constitutional: Negative for chills, fatigue and fever. HENT: Negative for sore throat. Respiratory: Negative for cough, chest tightness and shortness of breath. Cardiovascular: Negative for chest pain, palpitations and leg swelling. Gastrointestinal: Negative for abdominal pain and blood in stool. Objective Vitals: 07/12/25 1342 BP: 122/64 BP Location: Left arm Patient Position: Sitting BP Cuff Size: Adult Pulse: 72 Resp: 20 Temp: 96.9 ??F (36.1 ??C) TempSrc: Oral SpO2: 98% Weight: 142 lb 3.2 oz (64.5 kg) Physical Exam Constitutional: Appearance: Normal appearance. Cardiovascular: [...] for this visit: Hypertension, unspecified type Comments: Patient is doing well. He is recommended to continue on his current medications, continue exercising regularly, continue counseling, check fasting blood work listed below. He is up-to-date with flu vaccine. Orders: - CBC auto differential; Future - Comprehensive Metabolic Panel; Future - Lipid Panel, Standard; Future - TSH W/Reflex to FT4; Future Hypothyroidism, unspecified type - CBC auto differential; Future - Comprehensive Metabolic Panel; Future - Lipid Panel, Standard; Future - TSH W/Reflex to FT4; Future History of depression - CBC auto differential; Future - Comprehensive Metabolic Panel; Future - Lipid Panel, Standard; Future - TSH W/Reflex to FT4; Future History of CVA (cerebrovascular accident) - CBC auto differential; Future - Comprehensive Metabolic Panel; Future - Lipid Panel, Standard; Future - TSH W/Reflex to FT4; Future Future Appointments Date Time Provider Department Center 08/03/2025 10:00 AM Ruth [facility] documented in this encounter Plan of Treatment Scheduled Orders Name Type Priority Associated Diagnoses Orde r Schedule CBC auto differential Lab Routine Hypertension, unspecified type Hypothyroidism, unspecified type History of depression History of CVA (cerebrovascular accident) Expected: 07/12/2025 (Approximate), Expires: 07/12/2026 Comprehensive Metabolic Panel Lab Routine Hypertension, unspecified type Hypothyroidism, unspecified type History of depression History of CVA (cerebrovascular accident) Expected: 07/12/2025 (Approximate), Expires: 07/12/2026 Lipid Panel, Standard Lab Routine Hypertension, unspecified type Hypothyroidism, unspecified type History of depression History of CVA (cerebrovascular accident) Expected: 07/12/2025 (Approximate), Expires: 07/12/2026 TSH W/Reflex to FT4 Lab Routine Hypertension, unspecified type Hypothyroidism, unspecified type History of depression History of CVA (cerebrovascular accident) Expected: 07/12/2025 (Approximate), Expires: 07/12/2026 documented as of this encounter Visit Diagnoses Diagnosis Hypertension, unspecified type- Primary Hypothyroidism, unspecified type History of depression Personal history of other mental disorder History of CVA (cerebrovascular accident) Transient ischemic attack (TIA), and cerebral infarction without residual deficits documented in this encounter Additional Health Concerns Assessment Noted Time PHQ-9 Depression Total Score: 8 07/12/20 25 1:16 PM EST documented as of this encounter Care Teams Rv Technician Relationship Specialty Start Date End Date Name, MD Darvin [address] [place] [address] PCP - General Family Medicine 04/01/18 documented as of this encounter
[2025-07-12 16:25] LABS: MANUAL DIFF FLAG NO
--- OUTSIDE RECORDS SUMMARY | 2025-07-12 16:37 | XMS_ITS | Encounter Summary ---
Author Organization [employer] Address [address] [facility] [address] [place] [address] Care Team Providers Care Fabric Designer Name Role Phone Name, Darvin THOMSON Primary Care Provider [phone] Encounter Details Date Type Department Care Team (Latest Contact Info) Description 07/12/2025 Travel Social History Tobacco Use Types Packs/Day [...] documented as of this encounter Care Teams Fabric Designer Relationship Specialty Start Date End Date Name, MD Darvin [address] [place] [address] PCP - General Family Medicine 04/01/18 documented as of this encounter
--- OUTSIDE RECORDS SUMMARY | 2025-07-12 16:37 | XMS_ITS | Encounter Summary ---
Author Organization [employer] Address [address] [facility] [address] [place] [address] Care Team Providers Care As400 Programmer Analyst Name Role Phone Name, Darvin THOMSON Primary Care Provider [phone] Reason for Visit * Reason Onset Date Comments Pre-op Exam 08/05/2024 Encounter Details Date Type Department Care Team ([facility] st Contact Info) Description 08/05/2024 Telephone [facility] [address] [place] [address] Name, MD Darvin [address] [place] [address] Pre-op Exam Social History Tobacco Use Types [...] Lab needed: No EKG: No Surgeon's name: [facility] Facility name: [facility] Surgeon's office number: [phone] Surgeon's office fax number: [phone] Contact name (person you spoke with): Carolina [...] documented as of this encounter Care Teams As400 Programmer Analyst Relationship Specialty Start Date End Date Name, MD Darvin [address] [place] [address] PCP - General Family Medicine 04/01/18 documented as of this encounter
--- OUTSIDE RECORDS SUMMARY | 2025-07-12 16:37 | XMS_ITS | Clinical Summary ---
Author Organization [employer] Address [address] [place] [address] 7[address] [place] [address] Care Team Providers Care Foreign Exchange Services Manager Name Role Phone Name, Darvin THOMSON Primary Care Provider Allergies Active Allergy Reactions Criticality Noted Date Comments Aspirin 04/24/2019 Medications * This document contains information received from the source organization and may not represent a complete record from that organization. losartan (Cozaar) 25 MG tablet TAKE 1 TABLET BY MOUTH EVERY DAY IN THE MORNING 90 tablet 3 12/09/19 25 Active atorvastatin (Lipitor) 80 MG tablet TAKE 1 TABLET (80 MG) BY MOUTH IN THE MORNING 90 tablet 3 12/09/19 25 026 Active pantoprazole (ProtoNix) 40 MG EC tablet TAKE 1 TABLET BY MOUTH BEFORE BREAKFAST. DO NOT CRUSH, CHEW OR SPLIT. 90 tablet 3 01/02/20 25 Active clopidogrel (Plavix) 75 MG tablet TOME DEB TABLETA (75 MG) POR VIA ORAL EN LA MANANA 90 tablet 1 02/18/20 25 Active traZODone (Desyrel) 50 MG tablet TAKE 1 TABLET BY MOUTH EVERY DAY AT BEDTIME 90 tablet 06/07/20 25 Active tamsulosin (Flomax) 0.4 MG 24 hr capsule TAKE 1 CAPSULE BY MOUTH IN THE MORNING 90 capsule 2 06/29/20 25 Active allopurinol (Zyloprim) 300 MG tablet TAKE 1 TABLET BY MOUTH IN THE MORNING 90 tablet 2 06/29/20 25 Active levothyroxine (Synthroid, Levoxyl) 50 MCG tabletIndicatio ns:Hypothyroidi sm, unspecified type TAKE 1 TABLET BY MOUTH IN THE MORNING BEFORE BREAKFAST 90 tablet 2 06/29/20 25 Active allopurinol (Zyloprim) 300 MG tablet TAKE 1 TABLET (300 MG) BY MOUTH IN THE MORNING 90 tablet 2 10/03/19 25 025 Discontinued tamsulosin (Flomax) 0.4 MG 24 hr capsule TAKE 1 CAPSULE BY MOUTH EVERY DAY IN THE MORNING 90 capsule 2 10/03/19 25 025 Discontinued levothyroxine (Synthroid, Levoxyl) 50 MCG tabletIndicatio ns:Hypothyroidi sm, unspecified type TAKE 1 TABLET BY MOUTH EVERY DAY BEFORE BREAKFAST 90 tablet 2 10/03/19 25 025 Discontinued Active Problems Problem Noted Date Diagnosed Date Ill-fitting dentures 06/09/2025 Severe episode of recurrent major depressive disorder, without psychotic features (CMS/HCC) 05/23/2025 Neck pain 01/25/2025 Adjustment disorder with anxious mood 10/21/2024 Grief 10/21/2024 Preop examination 10/06/2024 History of CVA (cerebrovascular accident) 2023 Overview (01/22/2025): Hemorrhagic stroke in the He had a craniotomy at [facility] No residual weakness Missing teeth, acquired 08/13/2023 [...] organization. Date Type Department Care Team Description 07/12/2025 1:45 PM EST Office Visit [address] [address] Name, MD Darvin Hypertension, unspecified type (Primary Dx); Hypothyroidism, unspecified type; History of depression; History of CVA (cerebrovascular accident) 07/12/2025 Travel 06/29/2025 Refill [facility] [address] [place] [phone] Darvin Yen MD Hypothyroidism, unspecified type 06/09/2025 3:30 PM EST Office Visit [facility] [address] [place] [phone] Sammy Huff DDS Ill-fitting dentures (Primary Dx) 06/05/2025 Refill [facility] [address] [place] [address] Darvin Yen MD 05/14/[address] [address] Darvin Yen MD Nurse Triage 04/16/2025 1:45 PM EDT Office Visit [address] [address] Darvin Yen MD Hypertension, unspecified type (Primary Dx); History of CVA (cerebrovascular accident); Encounter for immunization; Depression with anxiety; Blurred vision, bilateral 04/16/2025 Travel 04/15/[address] [address] Darvin Yen MD CHARTPREP from Last 3 Months Immunizations Immunization Administration [...] oz) 07/12/2025 1:42 P M EST Height 157.5 cm (5' 2 ) 04/16/2025 1:48 PM EDT Body Mass Index 26.01 04/16/2025 1:48 PM EDT Plan of Treatment Health Maintenance Due [...] Additional history exists SDOH Screening 10/07/2025 10/07/2024 Alcohol/Substance Use Screening 04/16/2026 04/16/2025 Depression Screening 07/12/2026 07/12/2025, 07/12/20 Tobacco Screening 07/12/2026 07/12/2025 DTaP/Tdap/Td Vaccines (2 - Td or Tdap) 04/24/2029 04/24/2019 Lipid Panel 10/20/2029 10/20/2024, 02/08/2023, 08/07/2022, Additional history exists Influenza Vaccine Completed [...] Procedure Name Priority Date/Time Associated Diagnosis Comments CASE PRESENTATION, DETAILED AND EXTENSIVE TREATMENT PLANNING Routine 06/09/2025 3:30 PM EST LIMITED ORAL EVALUATION - PROBLEM FOCUSED Routine 06/09/2025 3:30 PM EST LIPID PANEL, STANDARD Routine 10/20/2024 8:49 AM [...] 8:49 AM EDT) Triglycerides 61 <150 mg/dL [facility] Comment:Desirable Triglyceri de: less than 150 mg/dLBorderline High Triglyceride 150-199 mg/dLHigh Triglyceride: 200-499 mg/dLVery High Triglyceride: greater than or equal to 5OO mg/dL Cholesterol 136 <200 mg/dL [facility] Comment:Desirable Cholestero l: less than 200 mg/dLBorderline High Cholesterol: 200-239 mg/dLHigh Cholesterol: greater than 239 mg/dL LDL Cholesterol Calculated 72 <100 mg/dL [facility] Comment:Desirable LDL: less than 100 mg/dLNear Optimal/Above Optimal LDL: 110- 129 mg/dLBorderline High LDL: 130-159 mg/dLHigh LDL: 160-189 mg/dLVery High LDL: greater than or equal to 190 mg/dL HDL Cholesterol 52 >40 mg/dL [facility] Comment:Desirable HDL: great er than 40 mg/dL Note: This HDL assay may give artificially low results in patients with liver disease. Blood Venous blood specimen / Unknown 10/20/2024 8:49 AM EDT 10/20/2024 11:02 AM EDT us Darvin Name LAB BLOOD ORDERABLES Final Resul t [facility] [address] [place] [address] [phone] from Last 3 Months or Most Recently Relevant to Health Maintenance Insurance [facility] OPTIONS (HMO D-SNP) DENTAL - [facility] Care Teams Foreign Exchange Services Manager Relationship Specialty Start Date End Date Name, MD Darvin [address] [place] [phone] PCP - General Family Medicine 04/01/18
[2025-07-12 16:42] LABS: Hematocrit 42.6 % (42.0-52.0); Hemoglobin 14.0 g/dl (14.0-18.0); Imm Gran Abs Auto 0.01 X10*3/uL (0.00-0.03); Imm Gran Pct Auto 0.2 % (0.0-0.4); Lymphocytes Absolute Auto 1.1 X10*3/uL (1.2-4.9); Mean Corpuscular HGB Conc 32.9 g/dl (31.0-36.0); Mean Corpuscular Hemoglobin 30.4 pg (27.0-33.0); Mean Corpuscular Volume 92.6 fL (80.0-98.0); NRBC Abs Auto 0.000 X10*3/uL (0.0-0.012); NRBC Pct Auto 0.0 /100WBC (0.0-0.2); Platelet Count 284 X10*3/uL (160-400); Red Blood Count 4.60 X10*6/uL (4.60-5.80); White Blood Count 6.2 X10*3/uL (4.8-10.8)
[2025-07-12 18:09] LABS: Alanine Aminotransferase 25 U/L (0-40); Albumin Level 4.2 g/dL (3.5-5.0); Alkaline Phosphatase 81 U/L (39-117); Anion Gap 11 (12-20); Aspartate Amino Transferase 42 U/L (5-37); Blood Urea Nitrogen 16 mg/dL (9-16); Calcium 8.8 mg/dL (8.4-10.2); Carbon Dioxide 29 mmol/L (22-29); Chloride 106 mmol/L (96-108); Cholesterol 135 mg/dL (<200); Estimated Glomerular Filt Rate > 60; HDL Cholesterol 48 mg/dL (>40); Potassium 4.0 mmol/L (3.3-5.1); Sodium 142 mmol/L (135-145); Total Protein 6.5 g/dL (6.5-8.0); Triglycerides 103 mg/dL (<150)
== END 2025-07-12 14:15 ==
LOC: HO.HHCL 14:14
PROVIDERS: PCP Internal Medicine Geriatric Medicine; Visit Provider Internal Medicine Geriatric Medicine
DX: E03.9 Hypothyroidism, unspecified (principal); Z86.59 Personal history of other mental and behavioral disorders; Z86.73 Personal history of transient ischemic attack (TIA), and cerebral infarction without residual deficits; I10 Essential (primary) hypertension
CPT/HCPCS: 36415; 80053; 80061; 84443; 85025